=== PATIENT | male | born 1935 | race Caucasian/White ===

== ENCOUNTER 2017-01-13 16:05 | Inpatient (IN) | payer OTHER, MEDICARE ==
[~2017-01-13] VITALS: Ht 175.3 cm; Wt 86.6 kg
--- NOTE | ~2017-01-13 | P ---
[facility] [place] [place] [address] PROCEDURE REPORT Name: DEYANIRA IRBY Room #: 236-P [facility] IN M.R.#: [id number] Admission: 01/13/17 Attend Phys: Leonila Nevarez MD Discharge: 02/02/17 Date of : 35 Report #: [id number] THIS REPORT FOR: //name// CC: Kwadwo Cao PROCEDURE: Diagnostic bronchoscopy. CLINICAL HISTORY: An 81-year-old white male with severe pneumonia with respiratory failure and with worsening leukocytosis. A diagnostic bronchoscopy was performed. POSTOPERATIVE DIAGNOSES: Old blood seen in both lower lobes. Otherwise, airways appear patent. Mild purulent secretions seen from both lower lobes. DESCRIPTION OF PROCEDURE: Following obtained consent from the patient's , the procedure was performed in the ICU. A flexible bronchoscope was introduced through the previously placed ET tube. The distal trachea was unremarkable. Marisol was normal. Right main stem bronchus, right upper lobe, and right lower lobe were grossly unremarkable, other than old blood seen in the airways. This was mild. Left main stem bronchus, left upper lobe, and left lower lobe was also unremarkable, other than old blood. Secretions were mildly purulent. No mucus plugging was noted. Bronchial lavage will be performed in the both lower lobes. The specimen will be sent for microbiologic studies. The patient tolerated the procedure well. No complications. Vital signs and saturation were within normal range throughout the procedure. <ELECTRONICALLY SIGNED> By: Olivier Mitchell MD 02/02/17 1124 1532 1756 Olivier Mitchell MD /nt
--- NOTE | ~2017-01-13 | CNG ---
[facility] [place] [place] [address] CYTO-NONGYN REPORT PROCEDURE Name: INDERJIT IRBY Room #: 236-P ADM IN M.R.#: [id number] Admission: 01/13/17 Date of : 35 Discharge: Report #: [id number] Path Case #: [id number] CYTOPATHOLOGY REPORT COLLECTION DATE: 01/22/2017 RECEIVED DATE: 01/22/2017 SUBMITTING PHYS: Dr. Olivire Mitchell OTHER PHYS: Dr. Pinky Bryant CLINICAL HISTORY: AFIB, RVR, Pneumonia SPECIMEN(S) RECEIVED: A.Bronchoalveolar lavage, Lower lobes * * * * * * * * * * * * FINAL DIAGNOSIS: A. Lower lobes, Bronchoalveolar lavage: - No malignant cells identified. Rare bronchial epithelial cells, scattered alveolar macrophages and marked acute inflammation. PATHOLOGIST: Aminta Jessica M.D. REPORT ELECTRONICALLY SIGNED BY: Aminta Jessica M.D. DATE/TIME: 01/25/2017 16:16 * * * * * * * * * * * * GROSS PATHOLOGY: A. Bronchoalveolar lavage, Lower lobes: The specimen is submitted unfixed, labeled "ColeenInderjit". Received by the Cytology Department is 1 mL of thick cloudy pink fluid. One ThinPrep slide was prepared. 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 [facility] [address] [place] [address], [facility] [address] [place], [place] [address] [place] [address] [place] [address] CYTO-NONGYN REPORT PROCEDURE Name: INDERJIT IRBY Room #: 236-P ADM IN M.R.#: [id number] Admission: 01/13/17 Date of : 35 Discharge: Report #: [id number] Path Case #: [id number] PHONE: [phone] DIRECTOR: Jd Gardner M.D. * * * END OF REPORT * * *
--- NOTE | ~2017-01-13 | D ---
[facility] [place] [place] [address] DISCHARGE SUMMARY Name: DEYANIRA IRBY Room #: 236-P [facility] IN ..#: [id number] Admission: 01/13/17 Attend Phys: Leonila Nevarez MD Discharge: 02/02/17 Date of : 35 Report #: [id number] THIS REPORT FOR: //name// CC: Kwadwo Nevarez DATE OF SERVICE: 02/02/2017 DATE OF ADMISSION: 01/13/2017 DATE OF DISCHARGE: 02/02/2017 DIAGNOSES: 1. Acute hypoxic respiratory failure secondary to pneumonia. 2. Pneumonia with severe sepsis. 3. Cerebral infarcts. 4. Acute kidney injury. CONSULTS: Critical Care, Pulmonary, ID, renal Urology, Cardiology and GI. HOSPITAL COURSE: The patient is an 81-year-old male with a history of hypertension and dyslipidemia, presented to the ER secondary to cough and not feeling well. Please see details of admission dictated by Dr. Roger Germain on January 13. The patient was admitted for pneumonia and initially was also in rapid atrial fibrillation. For details of the hospital course, please see [facility]. The patient developed respiratory failure, subsequently intubated. Pulmonary and Critical Care was consulted. Additionally, he developed severe sepsis and ID was consulted. Cardiology was consulted to manage his current cardiac issues. Over the course of a couple of weeks, his condition continued to deteriorate. He also developed encephalopathy, Neurology was consulted. MRI was done and the patient was found to have cerebral infarcts as well. Palliative care was consulted and after long discussion with the family, they decided to withdraw care. The patient on 02/02/2017. By: 0737 1150 My Hans Nevarez MD /nt
--- NOTE | ~2017-01-13 | HC ---
[facility] [place] [place] [address] CONSULTATION Name: DEYANIRA IRBY Room #: 236-P [facility] IN .R.#: [id number] Admission: 01/13/17 Attend Phys: Pinky Cao MD Discharge: Date of : 35 Report #: [id number] THIS REPORT FOR: //name// CC: Kwadwo Germain PRIMARY PHYSICIAN: Kwadwo Bryant DO REFERRAL PHYSICIAN: Dr. Germain. REASON FOR REFERRAL: Acute hypoxic respiratory failure. HISTORY OF PRESENT ILLNESS: The patient is an 81-year-old white male who was admitted on 01/13/2017, for progressive dyspnea. He was found to be in atrial fibrillation with rapid ventricular response. He was also found to have bilateral pneumonia. The patient was admitted. Since admission, the patient has developed progressive hypoxia and dyspnea. He is in moderate respiratory distress at this time. He is currently on 15 liters of O2, saturation is 85% predicted. He is in the process of being transferred to the ICU. His CT chest performed during this admission was reviewed showing bilateral patchy infiltrates. PAST MEDICAL HISTORY: Hypertension, hyperlipidemia, and chronic back pain. PAST SURGICAL HISTORY: Includes laminectomy in 1974, right rotator cuff surgery in 1994, left rotator cuff surgery in 2001, tonsillectomy, right hip surgery along with back surgery. ALLERGIES: To HYDROCODONE, which causes dyspnea; NABUMETONE, reaction is not specified; and PENICILLIN, reaction is not specified. HOME MEDICATIONS: Atorvastatin, alprazolam, lisinopril, multivitamins, and aspirin. CURRENT MEDICATIONS: Reviewed, this include bronchodilators, meropenem, and levofloxacin. FAMILY HISTORY: Noncontributory. SOCIAL HISTORY: The patient is . He is a lifetime nonsmoker. Denies any alcohol use. ____. He lives with his spouse. REVIEW OF SYSTEMS: As mentioned above, otherwise the patient states that has been fairly healthy up to recently. [facility] [address] [place] [address] CONSULTATION Name: DEYANIRA IRBY Room #: [address] [place] [address] [place] [facility].#: [id number] Admission: 01/13/17 Attend Phys: Pinky Cao MD Discharge: Date of : 35 Report #: [id number] Otherwise, 10-point system review negative. PHYSICAL EXAMINATION: GENERAL: He is awake, alert, in moderate respiratory distress. VITAL SIGNS: Temperature is 98.8 degrees Fahrenheit, pulse is ____, respiratory rate is 20, blood pressure 142/90 mmHg, saturation is 86-90% on 15 liters of O2. HEENT: Normocephalic, atraumatic. NECK: Supple, without lymphadenopathy or thyromegaly. CHEST: Breath sounds are fair, bilateral crackles. No obvious wheezes. CARDIOVASCULAR: Irregularly irregular. No obvious murmurs or gallops. Pulses are 2+/4+ bilaterally. ABDOMEN: Soft, nontender, no organomegaly or masses felt. EXTREMITIES: There is no edema, cyanosis, or clubbing. LABORATORY DATA: CT chest as mentioned above. Chest x-ray performed earlier today shows increased bilateral infiltrates and possible pleural effusion on the left, volume loss. 2D echocardiogram performed, showed an ejection fraction of 55%, mild aortic stenosis, moderate mitral regurgitation, moderate pulmonary hypertension with a PA pressure of around 50 mmHg, no pleural effusion seen. Influenza A and B screen was negative. Troponin was normal. Lactate was 1.7. Sodium 125, potassium 3.5, chloride 89, CO2 of 28, BUN 16, creatinine 0.9. WBC 23,200, hemoglobin is 11.9 without significant bandemia. Albumin 1.8. Arterial blood gas revealed pH 7.50, pCO2 32, pO2 of 55 on 15 liters of O2. IMPRESSION: 1. Acute hypoxic respiratory failure in this 81-year-old white male. His chest x-ray and chest CT revealed bilateral interstitial infiltrates with a most recent chest x-ray suggesting volume overload. Pleural effusion on the left is suspected. He was also in atrial fibrillation with rapid ventricular response. Etiology is secondary to severe bilateral pneumonia with possible component of pulmonary edema. Pulmonary embolus is felt to be less likely. 2. Bilateral infiltrates. The patient is felt to have severe community-acquired pneumonia. He is currently on meropenem and Levaquin. I would suggest switching to vancomycin along with Levaquin given the severity of pneumonia. 3. Atrial fibrillation with rapid ventricular response, the patient may have a component of volume overload with pulmonary edema on top of his pneumonia. Diuretics have been started. 4. Electrolyte abnormalities including hyponatremia, hypokalemia, related to severe pulmonary impairment. 5. Severe protein-calorie malnutrition. 6. Acute diastolic heart failure as mentioned above. RECOMMENDATION: We would transfer the patient to ICU, noninvasive positive [facility] [address] [place] [address] CONSULTATION Name: DEYANIRA IRBY Room #: 236-P [facility] IN M.R.#: [id number] Admission: 01/13/17 Attend Phys: Pinky Cao MD Discharge: Date of : 35 Report #: [id number] pressure ventilation will be initiated, diuretics ____, change antibiotics to vancomycin along with Levaquin. I do not suspect the patient has aspiration, but more so Gram-negative including other community-acquired pneumonia pathogens. Based on both data, the patient does meet the criteria of severe sepsis. Sepsis protocol will be initiated except for volume bolus based on presumed heart failure. With increased work of breathing, the patient is at risk for developing respiratory failure necessitating intubation. We will monitor closely. DVT and GI prophylaxis will be addressed. Thank you for the consultation. Additional recommendations include given severe respiratory distress, the patient should be n.p.o. with only sips of water for now. Thank you ____. <ELECTRONICALLY SIGNED> By: Olivier Mitchell MD 01/19/17 1146 1321 2158 Olivier Mitchell MD /nt
--- NOTE | ~2017-01-13 | HC ---
[facility] [place] [address] CONSULTATION Name: DEYANIRA IRBY Room #: 236-P ADM IN M.R.#: [id number] Admission: 01/13/17 Attend Phys: Pinky Cao MD Discharge: Date of : 35 Report #: [id number] THIS REPORT FOR: //name// CC: Kwadwo Cao DATE OF SERVICE: 01/25/2017 Nephrology Consultation REASON FOR CONSULTATION: Acute kidney injury and hyperkalemia. HISTORY OF PRESENT ILLNESS: The patient was admitted in late December with community-acquired pneumonia and has had a progressively deteriorating course since that time despite antibiotic treatment and requiring intubation and further management complicated by atrial fibrillation with rapid ventricular response, bleeding including epistaxis and now rising creatinine and hyperkalemia. PAST MEDICAL HISTORY: He has a history of prior hypertension. OUTPATIENT MEDICATIONS: Included lisinopril, atorvastatin and aspirin. PAST SURGICAL HISTORY: He also has a previous past surgical history including laminectomy, rotator cuff surgery and several other orthopedic surgeries. SOCIAL HISTORY: Apparently, no smoking or alcohol according to the electronic medical record. REVIEW OF SYSTEMS: Cannot be taken as the patient is sedated on the ventilator. FAMILY HISTORY: Please see old charts. PHYSICAL EXAMINATION: GENERAL: This is an ill-appearing gentleman, endotracheal tube in place, completely sedated on the ventilator. SKIN: Unremarkable. SKELETAL: Well developed, well nourished, nonobese. HEENT: Extraocular movements cannot be tested. Pupils are reactive. Mucous membranes cannot be examined due to endotracheal tube. NECK: Shows no JVD. CHEST: Shows coarse rhonchi throughout. HEART: Irregular with a pulse of 100. ABDOMEN: Soft and nontender with good bowel sounds. EXTREMITIES: Show trace peripheral edema. Feet are slightly cool, not [facility] [address] [place] [address] CONSULTATION Name: DEYANIRA IRBY Room #: 236-P [facility] IN [place].#: [id number] Admission: 01/13/17 Attend Phys: Pinky Cao MD Discharge: Date of : 35 Report #: [id number] cyanotic. LABORATORY DATA: Hemoglobin is 9.3, white count 23.2, 78% neutrophils and no bands. Sodium is 137, potassium 6.2, chloride ____. ASSESSMENT AND PLAN: 1. Acute kidney injury: The patient is acutely ill with pneumonia, attempts at diuresis have been made. Hemodynamically, he has been at times unstable. Now, he is showing worsening kidney function. Primary diagnosis is community-acquired pneumonia. Further evaluation including culture results have been unrevealing. He had an ____ acute kidney injury with hyperkalemia, worsening renal function in the setting of deteriorating multi-system failure, community-acquired pneumonia. We will make attempts to improve his renal perfusion with increasing IV fluids, watching carefully for further fluid overload in the chest or worsening oxygenation requirements. Hopefully, this will also help with his hyperkalemia, which is also being treated with insulin, glucose and Kayexalate. We will adjust his tube feeding to ____ potassium from that and that certainly will be helpful as well and we will follow him closely in the ICU. 2. Community-acquired pneumonia with deterioration in respiratory failure. 3. History of hypertension. 4. Atrial fibrillation with rapid ventricular response. <ELECTRONICALLY SIGNED> By: Guilherme Graham MD 01/26/17 1147 0916 1225 Guilherme Graham MD /nt
--- NOTE | ~2017-01-13 | EEG ---
[facility] [place] [address] ELECTROENCEPHALOGRAM Name: DEYANIRA IRBY Room #: 236-P [facility] IN M.R.#: [id number] Admission: 01/13/17 Attend Phys: Matias Valdes Discharge: Date of : 35 Report #: [id number] THIS REPORT FOR: //name// CC: Kwadwo Cao DATE OF SERVICE: 01/29/2017 The patient is an 81-year-old male who is intubated. The patient has been off sedation and there is concern about his mental status. DESCRIPTION: The awake record consists of low amplitude poorly developed posterior dominant rhythm consisting of 5 cycle per second activity. There is no significant change of state during the recording, although muscle artifact was noted in the mid portion of the recording. No eye blink artifact was seen. Photic stimulation was nonactivating. No focal abnormalities or epileptiform discharges were noted. IMPRESSION: This is an abnormal adult record because of, 1. Lack of change of state during the recording. 2. Moderate slowing of the posterior dominant rhythm, which indicates diffuse cerebral dysfunction, but is a nonspecific finding. I thank you for your kind referral of the patient. <ELECTRONICALLY SIGNED> By: Mahi Escamilla DO 01/30/17 1111 2134 2203 Mahi Escamilla, DO /nt
--- NOTE | ~2017-01-13 | EKG ---
[address] [place] [address] ELECTROCARDIOGRAM REPORT Name: DEYANIRA IRBY Room #: 236-P ADM IN M.R.#: [id number] Admission: 01/13/17 Attend Phys: Pinky Cao MD Discharge: Date of : 35 Report #: [id number] THIS REPORT FOR: //name// 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 : 1935 Requested By: Jose L Xiong Order Number: [id number] MD: Andrew Pritchard Measurements Intervals [place] Rate: 79 P: 23 LA: 272 QRS: -19 QRSD: 93 T: 13 QT: 391 QTc: 449 Interpretive Statements Sinus rhythm Prolonged LA interval Poor R wave progression Compared to ECG 01/16/2017 07:46:18 sinus rhythm has replaced atrial fibrillation Electronically Signed On 01-19-2017 8:46:23 CDT by Andrew Pritchard [email or web address] <ELECTRONICALLY SIGNED> By: Andrew Pritchard MD, [facility] 01/19/17 0846 1037 1037 Andrew Pritchard MD, [facility] /EPI
--- NOTE | ~2017-01-13 | HC ---
[facility] [place] [address] CONSULTATION Name: DEYANIRA IRBY Room #: 236-P [facility] IN .R.#: [id number] Admission: 01/13/17 Attend Phys: Pinky Cao MD Discharge: Date of : 35 Report #: [id number] THIS REPORT FOR: //name// CC: Kwadwo Germain DATE OF SERVICE: 01/17/2017 INFECTIOUS DISEASE CONSULTATION ATTENDING PHYSICIAN: Roger Germain M.D. CONSULTATION REQUESTED BY: Olivier Mitchell M.D. REASON FOR CONSULTATION: Pneumonia and antibiotic management. HISTORY OF PRESENT ILLNESS: An 81-year-old white man hospitalized with increasing dyspnea. Chest x-ray and CT scan of the chest revealed bilateral pulmonary infiltrates, worse on the left. The patient is started on a combination of meropenem, vancomycin and Levaquin. At present, remains in the intensive care unit. He had experienced a nose bleed. He denies having any significant problems. He tells me the reason he is here is because of pneumonia. PAST MEDICAL HISTORY: Hypertension. Dyslipidemia. Chronic back pain. Laminectomy in 1974. Right rotator cuff surgery in 1994. Tonsillectomy. Right hip and back surgery in the past. DRUG ALLERGIES: HYDROCODONE, NABUMETONE and PENICILLIN. MEDICATIONS: The patient is on treatment with vancomycin 1250 mg IV every 12 hours, meropenem 1 gram IV every 8 hours and Levaquin 750 mg IV daily. He is receiving magnesium and potassium supplementation per protocol. He remains on regular insulin drip, p.r.n. Glucagon. Pressors as needed, heparin drip inhalation treatment with Atrovent and albuterol, diuresis with Lasix, dabigatran 150 p.o. b.i.d. p.r.n., alprazolam, history of intravenous diltiazem and p.r.n. ondansetron. SOCIAL HISTORY: See H and P. FAMILY HISTORY: See H and P. REVIEW OF SYSTEMS: As above and see H and P. PHYSICAL EXAMINATION: GENERAL: Elderly man, not toxic looking, in the intensive care unit. [facility] [address] [place] [address] CONSULTATION Name: DEYANIRA IRBY Room #: 236-P [facility] IN [facility].#: [id number] Admission: 01/13/17 Attend Phys: Pinky Cao MD Discharge: Date of : 35 Report #: [id number] VITAL SIGNS: Temperature maximum 99.9, pulse 113, respirations 29 and BP 124/86. HEENT: Head normocephalic, atraumatic. He has packing up at the left nostril because of nosebleed. Mouth, no thrush. NECK: Supple. No thyromegaly. LUNGS: Bilateral crackles posteriorly, left worse than right. HEART: S1, S2. No gallop or murmur. ABDOMEN: Soft. No masses or megaly. GENITOURINARY: Deferred. RECTAL EXAMINATION: Deferred. EXTREMITIES: No clubbing or cyanosis. NEUROLOGIC: Grossly within normal limits. LABORATORY DATA: Sodium 127, potassium 3.6, CO2 of 26, BUN 18, creatinine 0.9 and glucose 95. Alkaline phosphatase 152 IU per L. Albumin down to 2 g/dL. NT-proBNP was elevated at 5241 on January 13. WBC 25,300, hemoglobin 11.3 g/dL and platelets 512,000. Urinalysis revealed some microscopic hematuria. ABGs yesterday revealed pH of 7.50, pCO2 of 32, pO2 of 55, bicarbonate 25 and lactate 1.97 micromoles per liter. These set of gases on 15 liters nasal cannula. MICROBIOLOGY DATA: Blood and sputum cultures were order. Blood cultures were obtained. They remain negative and nasopharyngeal smear negative for rapid influenza antigens, A and B. Urine culture, no growth. RADIOLOGY EVALUATION: CT scan of the chest with and without contrast reveals extensive diffuse bilateral alveolar infiltrate, left greater than right; moderate pleural effusions; coronary artery calcification and mildly enlarged mediastinal adenopathy. ASSESSMENT: 1. Pneumonia with respiratory failure, undetermined organism. 2. Atrial fibrillation, rate controlled. 3. Aortic stenosis. 4. Hypertension. 5. Hypoalbuminemia. 6. Epistaxis. SUGGESTIONS: Recommend while awaiting culture results, we will continue with broad-spectrum antibiotic coverage, consistent of meropenem, vancomycin and Levaquin. Once clinical course improved and microbiology data available, we will streamline antibiotic regimen. [address] [address] CONSULTATION Name: SKYE IRBYSAMUEL Patiño Room #: 236-P [facility] IN M.R.#: [id number] Admission: 01/13/17 Attend Phys: Pinky Cao MD Discharge: Date of : 35 Report #: [id number] Germain and Dr. Mitchell, thank you for requesting my suggestions. <ELECTRONICALLY SIGNED> By: Kuldeep Xiong MD 01/18/17 1133 0614 1117 Kuldeep Xiong MD /nt
--- NOTE | ~2017-01-13 | EKG ---
[address] [address] ELECTROCARDIOGRAM REPORT Name: DEYANIRA IRBY Room #: 236-P ADM IN M.R.#: [id number] Admission: 01/13/17 Attend Phys: Pinky Cao MD Discharge: Date of : 35 Report #: [id number] THIS REPORT FOR: //name// [facility] Test Date: 2017-01-24 Test Time: 01:47:56 Pat Name: DEYANIRA IRBY Department: Room: 236 P Gender: M Record Cutter: brianna : 1935 Requested By: Jose L Xiong Order Number: [id number] MD: Jose L Xiong Measurements Intervals [place] Rate: 109 P: [place]: QRS: 102 QRSD: 95 T: -8 QT: 312 QTc: 421 Interpretive Statements Atrial fibrillation Right axis deviation Borderline T wave abnormalities Electronically Signed On 01-24-2017 22:34:04 CDT by Jose L Xiong [email or web address] <ELECTRONICALLY SIGNED> By: Jose L Xiong MD 01/24/17 2234 0147 0147 MD REX Mata
--- NOTE | ~2017-01-13 | EKG ---
[address] [address] ELECTROCARDIOGRAM REPORT Name: DEYANIRA IRBY Room #: 236-P ADM IN M.R.#: [id number] Admission: 01/13/17 Attend Phys: Roger Germain MD Discharge: Date of : 35 Report #: [id number] THIS REPORT FOR: //name// [facility] Test Date: 2017-01-16 Test Time: 07:46:18 Pat Name: DEYANIRA IRBY Department: Room: 236 Gender: M Sidehand: olman : 1935 Requested By: Jose L Xiong Order Number: [id number] MD: Andrew Pritchard Measurements Intervals [place] Rate: 114 P: IN: QRS: 6 QRSD: 94 T: 23 QT: 334 QTc: 461 Interpretive Statements Atrial fibrillation Poor R-wave progression Compared to ECG 01/13/2017 16:20:16 No significant change was found Electronically Signed On 01-17-2017 12:47:02 CDT by Andrew Pritchard [email or web address] <ELECTRONICALLY SIGNED> By: Andrew Pritchard MD, [facility] 01/17/17 1247 5 5 Andrew Pritchard MD, [facility] /EPI
--- NOTE | ~2017-01-13 | HC ---
[facility] [place] [address] CONSULTATION Name: DEYANIRA HORNE Room #: 236-P [facility] IN .R.#: [id number] Admission: 01/13/17 Attend Phys: Pinky Cao MD Discharge: Date of : 35 Report #: [id number] THIS REPORT FOR: //name// CC: Guilherme Cao Patient of Dr. Kwadwo Bryant and Dr. Pinky Cao. CHIEF COMPLAINT: This is an 81-year-old white male who was admitted to the hospital with community-acquired pneumonia that eventually required intubation and mechanical ventilation. He remains on the ventilator in the ICU and is critically ill. Most of the information in this documentation is obtained from the patient's chart, the computer and from patient's who is at the bedside. The patient initially presented with these symptoms of community-acquired pneumonia and has been critically ill in the Intensive Care Unit for quite some time. He was discovered also to have acute diastolic heart failure at the time of admission. He had a history only of hyperlipidemia. In the hospital, he has had some episodes of hypertension when his pain has been poorly controlled. He had 1 episode of epistaxis on 01/16/2017 and now, he is developing worsening acute renal failure with hyperkalemia and rising creatinine and a BUN that is extraordinarily high over 150. We were asked to see him because of heme positive stools and the possibility that he may have an upper GI bleed with that high BUN. PAST MEDICAL HISTORY: As listed above plus hyperlipidemia, atrial fibrillation, acute respiratory failure due to community-acquired pneumonia, diastolic heart failure, episode of epistaxis, hyperlipidemia and gastroesophageal reflux. PAST SURGICAL HISTORY: Significant mostly for orthopedic surgeries. He has had sacroiliac screws placed in October of this year. He has had bilateral rotator cuff repairs done. He has had a left hip replacement and he had a laminectomy in 1972. ALLERGIES: PENICILLIN. MEDICATIONS: Prior to admission included 81 mg aspirin, alprazolam 0.25 mg, he just takes that when he is riding in an airplane. He takes Lipitor, lisinopril, multiple vitamins. ALLERGIES: To PENICILLIN, HYDROCODONE, RELAFEN. SOCIAL HISTORY: He has never been a smoker. He drinks a glass of wine about 3 times a week. He has never had a blood transfusion. [address] [address] CONSULTATION Name: DEYANIRA HORNE Room #: 236-P [facility] IN [facility]#: [id number] Admission: 01/13/17 Attend Phys: Pinky Cao MD Discharge: Date of : 35 Report #: [id number] FAMILY HISTORY: Significant for colon polyp in his mother when she was in her 90s. There is no history of colon cancer, Crohn's disease or ulcerative colitis or celiac sprue. His brother is alive and well at the age of 92. REVIEW OF SYSTEMS: He has had no history of dysphagia or odynophagia. He does have occasional gastroesophageal reflux and is taking Pepcid with good control of those symptoms. His says that he has never had any history of hiatal hernia or peptic ulcer disease and his weight has been stable at 190 pounds for years. His appetite is good. He has not had nausea or vomiting, hematemesis, hematochezia or melena. There has been no constipation. He has predictable diarrhea if eats iceberg lettuce but that does not stop him. He has no history of colon polyps and he has had routine colonoscopies every 5 years. There is no history of jaundice, hepatitis, cholelithiasis, cholecystitis or pancreatitis. In the hospital, he has had brownish dark colored stools, but they are not black. There is no hematochezia or hematemesis. He is tolerating tube feedings per Dobhoff. PHYSICAL EXAMINATION: GENERAL: Reveals a well-developed, well-nourished 81-year-old white male in no apparent distress at the time of the examination. He is awake, alert, oriented x 4 and cooperative and pleasant to converse with. VITAL SIGNS: Blood pressure 157/83, temperature 36.5, pulse 99, respirations are in the 20s. His weight was 199 pounds yesterday, but on admission, it was 191 pounds. Stools have been all brown or dark brown. They are heme positive. HEENT: He is normocephalic, atraumatic and anicteric. HEART: Irregularly irregular. LUNGS: Clear on the left. For the most part on the right side, he has a lot of congestion. ABDOMEN: Soft and nontender? Bowel sounds are present in all 4 quadrants. There is no palpable organomegaly or mass. There is no tenderness, rebound or guarding that I can appreciate. The patient is sedated, however, with propofol. EXTREMITIES: Warm and dry. No peripheral cyanosis or clubbing. The patient does have a bruise on his left hip that appears to be healing. Right now, he has disseminated, erythematous maculopapular rash, undetermined etiology. This is a new rash. He did not have this prior to coming to the hospital. NEUROLOGIC: I did not test him extensively. He appears grossly intact, but he is sedated. IMPRESSION: 1. Heme-positive stools without hematemesis, hematochezia or melena; drop in hemoglobin throughout this admission from a level of 12.5 to a level of 8.7 today. He has a rising BUN and creatinine. Stools are dark brown. His last colonoscopy was 5 years ago and was normal. He has never had any history of colon polyps or colon cancer or diverticulosis per his 's or any previous gastrointestinal bleeding history. He was placed on dabigatran during this [facility] [address] [place] [address] CONSULTATION Name: MAHAMEDDEYANIRA T [facility] ..#: [id number] Admission: 01/13/17 Attend Phys: Pinky Cao MD Discharge: Date of : 35 Report #: [id number] admission. It was discontinued today per chart; however, his nurse tells me that he has not had this for many days. 2. Gastroesophageal reflux. Outside of the hospital, he took Pepcid p.r.n. with good control. 3. The patient's mother had her first colon polyp whenever she was in her 90s. 4. Hyperlipidemia. 5. Worsening renal insufficiency. 6. Hyperkalemia related to worsening renal insufficiency. 7. The patient has a lot of orthopedic problems from wear and tear on his joints over the years. 8. Atrial fibrillation, which is new. 9. Acute respiratory failure due to community-acquired pneumonia and sepsis. 10. Acute diastolic heart failure. 11. Episode of epistaxis this admission after starting anticoagulation. RECOMMENDATIONS: As follows: I have discussed with Ms. Horne if there are any number of reasons that his stools could be heme positive and the fact that there has been no hematemesis, hematochezia or melena is encouraging. He could still be heme positive from his epistaxis episode in December of this year. I agree with proton pump inhibitors b.i.d. He is tolerating the tube feedings. We also would continue those. His vital signs are stable. If he has any gross evidence of acute GI blood loss, we would attempt EGD urgently. Otherwise, we will make him n.p.o. after midnight for EGD in the morning. I do not think that we will be able to proceed with anticoagulation prophylaxis without ensuring that there is no repairable cause of upper GI blood loss with regard to his rising BUN, so we will hold his tube feedings after midnight. We will get an H and H in the morning. We will obtain a consent for EGD from and I have discussed plans for EGD with the patient's . We will continue his proton pump inhibitors. Thank you very much once again for allowing me to participate in his care, Dr. Cao and Dr. Roman. <ELECTRONICALLY SIGNED> By: Alisa Doherty DO 01/27/17 1558 1053 1225 Alisa Doherty DO /nt
--- NOTE | ~2017-01-13 | EKG ---
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 : 1935 Requested By: Dedrick Lua Order Number: [id number] MD: Andrew Pritchard Measurements Intervals [place] Rate: 99 P: CT: QRS: 86 QRSD: 99 T: 2 QT: 309 QTc: 397 Interpretive Statements Atrial flutter with predominant 3:1 AV block Compared to ECG 01/24/2017 01:47:56 No significant change was found Electronically Signed On 01-25-2017 9:14:38 CDT by Andrew Pritchard [email or web address] <ELECTRONICALLY SIGNED> By: Andrew rPitchard MD, [facility] 01/25/17913 8 8 Andrew Pritchard MD, [facility] /EPI
--- NOTE | ~2017-01-13 | 2DMMODE ---
[facility] [address] [place] [address] 2 D/M-MODE ECHOCARDIOGRAM Name: DEYANIRA IRBY Room #: 463-P [facility] IN [facility]#: [id number] Admission: 01/13/17 Attend Phys: Roger Germain MD Discharge: Date of : 35 Date of Service: 01/15/17 1021 Report #: [id number] THIS REPORT FOR: //name// APPROVED REPORT Study performed: 01/15/2017 09:02:59 EXAM: Comprehensive 2D, Doppler, and color-flow Echocardiogram Patient Location: Bedside Room #: 463 Blood Pressure: 151/86 mmHg HR: 120 bpm Rhythm: Atrial Fibrillation Other Information Study Quality: Adequate/Patient very short of air and uncomfortable during exam. Indications Dyspnea Atrial Fibrillation 2D Dimensions RVDd: 37.28 mm LVEF(%): 66.19 (>50%) IVSd: 10.10 (7-11mm) LVOT Diam: 22.26 (18-24mm) LVDd: 47.25 mm PWd: 9.34 (7-11mm) Ascending Ao: 32.00 (22-36mm) LVDs: 30.01 (25-40mm) Aortic Root: 34.78 mm Richardson's LVEF: 66.19 % Volumes Left Atrial Volume (Systole) Single Plane 4CH: 105.23 mL Single Plane 2CH: 66.48 mL LA ESV Index: 46.00 mL/m2 Aortic Valve AoV Peak Mariano.: 2.78 m/s AO Peak Gr.: 31.39 mmHg LVOT Max P.02 mmHg AO Mean Gr.: 19.64 mmHg LVOT Max V: 1.32 m/s AO V2 VTI: 39.98 cm [facility] [address] [place] [address] 2 D/M-MODE ECHOCARDIOGRAM Name: DEYANIRA IRBY Kaylyn Room #: 463-[facility] IN [facility].#: [id number] Admission: 01/13/17 Attend Phys: Roger Germain MD Discharge: Date of : 35 Date of Service: 01/15/17 1021 Report #: [id number] Mitral Valve MV Decel. Time: 114.87 ms MV E Max Mariano.: 1.07 m/s Pulmonary Valve PV Peak Mariano.: 1.09 m/s PV Peak Gr.: 4.76 mmHg Tricuspid Valve TR Peak Mariano.: 3.42 m/s RAP Estimate: 5.00 mmHg TR Peak Gr.: 46.95 mmHg RVSP: 52.00 mmHg Left Ventricle The left ventricle is normal size. There is normal LV segmental wall motion. There is normal left ventricular wall thickness. Left ventricular systolic function is normal. LVEF is 55%. This study is not technically sufficient to allow evaluation of the LV diastolic function due to atrial fibrillation. Right Ventricle The right ventricle is normal size. The right ventricular systolic function is normal. Atria Left atrium is dilated. Right atrium is dilated. Aortic Valve Aortic valve is moderately calcified. No aortic regurgitation is present. Mild aortic stenosis. Mitral Valve Mitral valve leaflets are mildly thickened. Moderate mitral regurgitation. Tricuspid Valve The tricuspid valve is normal in structure. There is moderate tricuspid regurgitation. The right atrial pressure is estimated at 5 mmHg. There is moderate pulmonary hypertension with an estimated PAP of 52mmHg. Pulmonic Valve The pulmonary valve is normal in structure. There is no pulmonic valvular regurgitation. Great Vessels The aortic root is normal in size. The ascending aorta is normal in [facility] [address] [place] [address] 2 D/M-MODE ECHOCARDIOGRAM Name: DEYANIRA IRBY Room #: 463-P [facility]#: [id number] Admission: 01/13/17 Attend Phys: Roger Germain MD Discharge: Date of : 35 Date of Service: 01/15/17 1021 Report #: [id number] size. IVC is normal in size and collapses >50% with inspiration. Pericardium There is no pericardial effusion. <Conclusion> Left ventricular systolic function is normal. LVEF is 55%. Normal LV segmental wall motion. Both atria are dilated. Aortic valve is moderately calcified. Mild aortic stenosis. Mitral valve leaflets are mildly thickened. Moderate mitral regurgitation. There is moderate pulmonary hypertension with an estimated PAP of 50 mmHg. There is no pericardial effusion. <ELECTRONICALLY SIGNED> By: Andrew Pritchard MD, FACC 01/15/17 1021 1021 1021 Andrew Pritchard MD, FAC /INF
--- NOTE | ~2017-01-13 | HC ---
[facility] [place] [address] CONSULTATION Name: DEYANIRA IRBY Room #: 236-P [facility] IN ..#: [id number] Admission: 01/13/17 Attend Phys: Leonila Nevarez MD Discharge: 02/02/17 Date of : 35 Report #: [id number] THIS REPORT FOR: //name// CC: Kwadwo Cao NEUROLOGY CONSULT HISTORY OF PRESENT ILLNESS: The patient is an 81-year-old male who presents with encephalopathy. The patient was initially admitted to the hospital on January 13 with shortness of air and fever. He had been ill several days prior. The patient was diagnosed with respiratory failure, bilateral interstitial infiltrates consistent with volume overload and atrial fibrillation with rapid ventricular response. The patient also had severe bilateral pneumonia. The patient has been intubated and sedation has been discontinued and this patient was not felt to be as responsive as he should be, however, the nurse states that he has been more responsive and prior to my coming to do the consult, she had just given him a dose of fentanyl because he appeared uncomfortable. Earlier in the evening, the patient had had an electroencephalogram. PAST MEDICAL HISTORY: Hypertension, hyperlipidemia, chronic back pain. PAST SURGICAL HISTORY: Laminectomy, right rotator cuff surgery, left rotator cuff surgery, tonsillectomy, right hip surgery. MEDICATIONS: Amiodarone 400 mg daily, Lipitor 20 mg daily, furosemide 80 mg b.i.d., meropenem 500 mg q 8 hours, methylprednisolone 40 mg b.i.d., metoprolol 25 mg b.i.d., Protonix 40 mg b.i.d. ALLERGIES: PENICILLIN, HYDROCODONE, NABUMETONE. PHYSICAL EXAMINATION: VITAL SIGNS: Temperature 36.6 axillary, pulse rate 90, respiratory rate 22, blood pressure 128/68, bedside pulse oximetry 96% on the ventilator. LABORATORY DATA: White blood cell count 19.1, hemoglobin 9.4, hematocrit 28.1, MCV 92.5, platelet count 366,000. Blood gas, pH 7.442, pCO2 44.6, pO2 87.1, O2 saturation 95%. Chemistry: Sodium 141, potassium 4.5, chloride 104, carbon dioxide 30, BUN 82, creatinine 1.5, GFR 45, glucose 131. Calcium 7.8, phosphorus 5.5, magnesium 2.5, total bilirubin 0.2, direct bilirubin 0.1, AST 70, ALT 74, alkaline phosphatase 98, creatinine kinase 513, total protein 5.5, albumin 1.5, amylase 21, lipase 68. TSH 1.4. NEUROLOGIC: Pupils are minimally reactive. Oculocephalic reflex is absent. Corneal reflex is present. The patient has a cough and gag reflex ventilator. I saw no spontaneous movements of the extremities. [address] [address] CONSULTATION Name: DEYANIRA IRBY Room #: 236-P [facility] IN ..#: [id number] Admission: 01/13/17 Attend Phys: Leonila Nevarez MD Discharge: 02/02/17 Date of : 35 Report #: [id number] IMPRESSION: This patient is encephalopathic. However, he had just received fentanyl prior to my examining him, so perhaps he will be more alert when I see him tomorrow as he has not had sedation. He does have some mild electrolyte abnormalities, which may be better by tomorrow as well and he has also dehydrated. I would try to give this patient as little sedation as possible, which I realize maybe difficulty with the patient on the ventilator. Once the patient is more stable, I would like to see some type of imaging of the head, whether this is with a CT scan, which may be the most practical or eventually an MRI of the head. I thank you for your kind referral the patient and will continue to follow him with you. <ELECTRONICALLY SIGNED> By: Mahi Escamilla DO 02/08/17 1253 2145 1916 Mahi Escamilla DO /nt
--- NOTE | ~2017-01-13 | P ---
[facility] [place] [address] PROCEDURE REPORT Name: DEYANIRA IRBY Room #: 236-P [facility] IN M.R.#: [id number] Admission: 01/13/17 Attend Phys: Pinky Cao MD Discharge: Date of : 35 Report #: [id number] THIS REPORT FOR: //name// CC: Kwadwo Cao DATE OF SERVICE: 01/19/2017 PROCEDURE: Intubation emergently. INDICATION: Hypoxemic respiratory failure. PROCEDURE NOTATION: I was asked to come to the bedside by ____ to emergently intubate this patient. The patient was poorly responsive, family at the bedside, discussed briefly ____ the procedure. The patient was placed in the supine posturing and switched from BiPAP to bag-mask ventilation, received 24 mg of etomidate IV. Using a MAC 4 blade, a grade 2 view of the vocal cords was noted and a 7.5 ET tube was advanced to 22 cm at the gumline. Positive ____ change and bilateral breath sounds noted. The patient tolerated well, this ET tube was secured in place. Chest x-ray is pending. Of note, there was significant blood in the oropharynx and aspirated from the endotracheal tube during initial evaluation. This blood was present on a view and not a consequence. <ELECTRONICALLY SIGNED> By: Elieser Sun MD 01/26/17 1331 1305 20 Elieser Sun MD /rosalie
--- NOTE | ~2017-01-13 | P ---
[facility] [place] [address] PROCEDURE REPORT Name: DEYANIRA IRBY Room #: 236-P [facility] IN M.R.#: [id number] Admission: 01/13/17 Attend Phys: Pinky Cao MD Discharge: Date of : 35 Report #: [id number] THIS REPORT FOR: //name// CC: Kwadwo Bryant DO Pinky Cao MD DATE OF SERVICE: 01/28/2017 PROCEDURE: Diagnostic EGD. PATIENT: Pinky Cao M.D. and Kwadwo Bryant D.O. INDICATION FOR PROCEDURE: This patient had drop in hemoglobin. He has had some Melena negative stools and this for the most part followed an episode of epistaxis on 01/16/2017, returned to rule out an upper GI source of blood loss again at this time. Informed consent for this procedure was obtained prior to the administration of any medication. The risks of the procedure which include bleeding, perforation, infection, complications of sedation and the possibility I could miss something have been explained to the patient's and she has indicated her consent for her to have the EGD. Propofol was slowly titrated before and during this procedure for patient's comfort by the anesthesia service. The [employer] upper videoscope was introduced through the upper esophageal sphincter and advanced under direct visualization to the descending duodenum. Findings are noted on withdrawal of the scope. The duodenal mucosa appears normal throughout its entirety. Pylorus, normal mucosa. Antrum, normal mucosa. Body, normal mucosa. Cardia and fundus, normal mucosa. There are some coffee-grounds in the proximal stomach. I am uncertain of their origin because there is no obvious source. There is no active bleeding. There is no red blood in the stomach or in the upper GI tract. The scope was then withdrawn into the esophagus. The Z-line is appropriately located at the top of the gastric folds and appears normal. The esophageal mucosa appears normal. There is a small strip of mucosa that has been wiped off by, what appears to be, the oral gastric tube that is in place for the patient who is currently on the vent, most likely this is the etiology of bad appearance. There is no ulceration, no bleeding in the esophagus. No potential bleeding site seen in the entire upper GI tract. The scope was withdrawn. The patient was recovered in the room. He tolerated the procedure well. IMPRESSION: Normal EGD to descending duodenum except for a few proximal gastric coffee-ground and a small stripe of esophageal mucosa that has been wiped off by the OG tube. [address] [address] PROCEDURE REPORT Name: DEYANIRA IRBY Kaylyn Room #: 236-P [facility]..#: [id number] Admission: 01/13/17 Attend Phys: Pinky Cao MD Discharge: Date of : 35 Report #: [id number] RECOMMENDATIONS: To monitor his H and H. If his further hemoglobin drops and we see blood coming out the rectum that might explain the hemoglobin drops. We may need to consider some sort of imaging study as a GI bleeding scan. I do not know that he would tolerate a colonoscopy very well at this point. Thank you very much once again for allowing me to participate in his care, Dr. Cao and Dr. Bryant. <ELECTRONICALLY SIGNED> By: Alisa Doherty DO 01/28/17 2250 1413 2148 Alisa Doherty DO /nt
--- NOTE | ~2017-01-13 | EKG ---
[address] [place] [address] ELECTROCARDIOGRAM REPORT Name: DEYANIRA IRBY Room #: 463-P ADM IN M.R.#: [id number] Admission: 01/13/17 Attend Phys: Roger Germain MD Discharge: Date of : 35 Report #: [id number] THIS REPORT FOR: //name// [facility] ED Test Date: 2017-01-13 Test Time: 16:20:16 Pat Name: DEYANIRA IRBY Department: Room: 463 Gender: M Imaging Specialist: Micaela KASPER : 1935 Requested By: Misbah Cain Order Number: [id number] MD: Andrew Pritchard Measurements Intervals [place] Rate: 139 P: [place]: QRS: -4 QRSD: 85 T: 4 QT: 285 QTc: 434 Interpretive Statements Atrial fibrillation with rapid V-rate Poor R wave progression Compared to ECG 03/03/2016 11:47:09 Atrial fibrillation is now present Electronically Signed On 01-14-2017 8:20:59 CDT by Andrew Pritchard [email or web address] <ELECTRONICALLY SIGNED> By: Andrew Pritchard MD, [facility] 01/14/17 0820 1620 19 Andrew Pritchard MD, [facility] /EPI
--- NOTE | ~2017-01-13 | HC ---
[facility] [place] [address] CONSULTATION Name: DEYANIRA IRBY Room #: 236-P [facility] IN M.R.#: [id number] Admission: 01/13/17 Attend Phys: Pinky Cao MD Discharge: Date of : 35 Report #: [id number] THIS REPORT FOR: //name// CC: Kwadwo Cao DATE OF SERVICE: 01/27/2017 PATIENT OF: Dr. Kwadwo Bryant and Dr. Cao. CHIEF COMPLAINT: The patient is sedated and on the vent and an information in this consultation is obtained from the computer and from the patient's , who is at the bedside. The patient is an 81-year-old white male, who was admitted initially to the hospital with an acute community acquired pneumonia, was eventually required intubation and mechanical ventilation. DICTATION ENDS HERE. <ELECTRONICALLY SIGNED> By: Alisa Doherty DO 01/27/17 1558 1038 1055 Alisa Doherty DO /nt
[~2017-01-13 16:05] MED LIST: ASPIRIN EC81 M1 PO; B COMPLEX-VITA1 EACH PO; CYCLOBENZAPRINE10 MG PO; GLUCOSAMINE-CH1 EA35 PO; HYDROCODON-ACE1 EACH PO; LIPITOR10 MG PO; MULTIVITAMINS PO; NABUMETONE 500500 M1 PO; PROTONIX40 M2 PO; RELAFEN500 MG PO; TRAMADOL 50 MG50 MG PO; VENTOLIN HFA 1818 GM INH; VOLTAREN GEL 1100 G1 TOP; VOLTAREN GEL 1100 G2 TOP; XANAX 0.25 MG0.25 MG PO; ZANTAC 150MG T150 MG PO; ZOFRAN ODT4 MG PO
[2017-01-13 17:06] LABS: HEMATOCRIT 35.8 % (42.0-52.0); HEMOGLOBIN 12.5 gm/dL (14.0-18.0); MANUAL DIFF YES; MCH 31.6 pg (26.0-34.0); MCHC 34.9 g/dL (28.0-37.0); MCV 90.5 fL (80.0-100.0); PLATELET COUNT 409 thou/uL (150-400); RBC 3.95 mil/uL (4.50-6.00); RDW 12.3 % (10.5-14.5); WBC 22.3 thou/uL (4.0-11.0)
[2017-01-13] MEDS ORDERED: LISINOPRIL2.5 MG PO (17:11)
[2017-01-13 17:24] LABS: ANION GAP 10 mmol/L (7-16); BUN 16 mg/dL (7-18); CALCIUM 8.2 mg/dL (8.5-10.1); CHLORIDE 88 mmol/L (98-107); CO2 23 mmol/L (21-32); CREATININE 1.1 mg/dL (0.7-1.3); GLUCOSE 120 mg/dL (74-106); SODIUM 121 mmol/L (136-145)
[2017-01-13 17:35] LABS: ALBUMIN 2.3 g/dL (3.4-5.0); ALKALINE PHOSPHATASE 115 U/L (46-116); MAGNESIUM 1.8 mg/dL (1.8-2.4); NT-PRO BRAIN NAT PEPTIDE 5241 pg/mL (<300); SGOT 46 U/L (15-37); SGPT 39 U/L (30-65); TOTAL BILIRUBIN 0.9 mg/dL (<0.1-1.0); TOTAL PROTEIN 6.5 g/dL (6.4-8.2); TROPONIN-I < 0.04 ng/mL (<0.04-0.07)
[2017-01-13 17:37] LABS: APTT 35.9 Seconds (24.5-32.8); INR 1.1; PROTIME 11.8 Seconds (9.3-11.4)
[2017-01-13 17:58] LABS: ABSOLUTE NEUTROPHILS 20.7 thou/uL (1.4-8.2); TOTAL CELL COUNT 100
[2017-01-13 17:59] LABS: LARGE PLATELETS OCCASIONAL; POLYCHROMASIA SLIGHT
[2017-01-13 19:30] VITALS: BP 126/81
[2017-01-13 20:05] VITALS: BP 117/71
[2017-01-13 21:17] VITALS: BP 114/73
[2017-01-13 23:32] VITALS: BP 131/84
[2017-01-14 04:28] VITALS: BP 130/85
[2017-01-14 06:25] LABS: HEMOGLOBIN 11.7 gm/dL (14.0-18.0); MCH 31.6 pg (26.0-34.0); MCHC 34.3 g/dL (28.0-37.0); MCV 92.2 fL (80.0-100.0); RBC 3.69 mil/uL (4.50-6.00); RDW 12.6 % (10.5-14.5); WBC 20.4 thou/uL (4.0-11.0)
[2017-01-14 06:46] LABS: ANION GAP 10 mmol/L (7-16); BUN 14 mg/dL (7-18); CALCIUM 7.7 mg/dL (8.5-10.1); CHLORIDE 95 mmol/L (98-107); CO2 21 mmol/L (21-32); CREATININE 0.8 mg/dL (0.7-1.3); GLUCOSE 97 mg/dL (74-106); POTASSIUM 3.6 mmol/L (3.5-5.1); SODIUM 126 mmol/L (136-145); TROPONIN-I < 0.04 ng/mL (<0.04-0.07)
[2017-01-14 08:00] VITALS: BP 142/84
[2017-01-14 11:47] LABS: ABG SAMPLE TYPE ARTERIAL; BE(vivo) -2.6 mmol/L (-2 to +3); HCO3 20.3 mmol/L (22.0-26.0); LACTATE 2.73 mmol/L (0.5-2.0); O2(CT) 16.4 mL/dL (15.0-23.0); O2Hb 93.3 % (92.0-98.0); PCO2 29.9 mmHg (35.0-45.0); PO2 66.6 mmHg (80.0-100.0); STICK SITE R.RADIAL; sO2 94.3 % (92.0-98.0); tCO2 21.2 mmol/L (24.0-30.0)
[2017-01-14 12:05] VITALS: BP 114/75
[2017-01-14 16:45] VITALS: BP 124/77; BP 147/94
[2017-01-14 19:50] VITALS: BP 143/95
[2017-01-15 01:06] VITALS: BP 149/89
[2017-01-15 04:19] VITALS: BP 143/87
[2017-01-15 05:58] LABS: HEMATOCRIT 34.7 % (42.0-52.0); HEMOGLOBIN 11.9 gm/dL (14.0-18.0); MCH 31.7 pg (26.0-34.0); MCHC 34.3 g/dL (28.0-37.0); MCV 92.5 fL (80.0-100.0); RBC 3.76 mil/uL (4.50-6.00); RDW 12.4 % (10.5-14.5); WBC 21.3 thou/uL (4.0-11.0)
[2017-01-15 06:00] LABS: CREATININE 0.8 mg/dL (0.7-1.3); POTASSIUM 3.3 mmol/L (3.5-5.1)
[2017-01-15 07:43] VITALS: BP 151/86
[2017-01-15 15:21] VITALS: BP 126/84
[2017-01-15 20:58] VITALS: BP 147/94
[2017-01-15 22:17] LABS: URINE BILIRUBIN NEGATIVE (Negative); URINE BLOOD 1+ (Negative); URINE COLOR YELLOW; URINE GLUCOSE-RANDOM* NEGATIVE (Negative); URINE KETONES NEGATIVE (Negative); URINE LEUKOCYTES-REFLEX NEGATIVE (Negative); URINE PROTEIN (DIPSTICK) NEGATIVE (Negative); URINE UROBILINOGEN 0.2 E.U./dl (0.2-1.0)
[2017-01-15 22:23] LABS: CASTS None Seen /LPF (None Seen); CRYSTALS None Seen /LPF (None Seen); SQUAMOUS None Seen /LPF (0-3); URINE RBC None Seen /HPF (0-2); URINE WBC-REFLEX None Seen /HPF (0-5)
[2017-01-16] VITALS (45 sets, daily range): BP systolic 111–150; BP diastolic 73–112
[2017-01-16 10:35] LABS: HEMATOCRIT 34.9 % (42.0-52.0); HEMOGLOBIN 11.9 gm/dL (14.0-18.0); MCH 31.6 pg (26.0-34.0); MCHC 34.1 g/dL (28.0-37.0); MCV 92.6 fL (80.0-100.0); PLATELET COUNT 514 thou/uL (150-400); RBC 3.77 mil/uL (4.50-6.00); RDW 12.9 % (10.5-14.5); WBC 23.3 thou/uL (4.0-11.0)
[2017-01-16 10:38] LABS: MANUAL DIFF YES
[2017-01-16 10:45] LABS: ALBUMIN 1.8 g/dL (3.4-5.0); CALCIUM 7.9 mg/dL (8.5-10.1); CREATININE 0.9 mg/dL (0.7-1.3); POTASSIUM 3.5 mmol/L (3.5-5.1); TOTAL BILIRUBIN 0.8 mg/dL (<0.1-1.0); TOTAL PROTEIN 6.2 g/dL (6.4-8.2)
[2017-01-16 10:56] LABS: ABSOLUTE NEUTROPHILS 21.7 thou/uL (1.4-8.2); TOTAL CELL COUNT 100
[2017-01-16 12:35] LABS: ABG SAMPLE TYPE ARTERIAL; BE(vivo) 2.7 mmol/L (-2 to +3); HCO3 25.4 mmol/L (22.0-26.0); LACTATE 1.97 mmol/L (0.5-2.0); O2(CT) 15.8 mL/dL (15.0-23.0); O2Hb 89.1 % (92.0-98.0); PCO2 32.9 mmHg (35.0-45.0); STICK SITE R.RADIAL; pH 7.505 (7.360-7.450); sO2 91.5 % (92.0-98.0); tCO2 26.4 mmol/L (24.0-30.0)
[2017-01-16 14:12] LABS: HEMATOCRIT 36.5 % (42.0-52.0); HEMOGLOBIN 12.5 gm/dL (14.0-18.0); MCH 31.6 pg (26.0-34.0); MCHC 34.3 g/dL (28.0-37.0); MCV 92.1 fL (80.0-100.0); PLATELET COUNT 552 thou/uL (150-400); RBC 3.97 mil/uL (4.50-6.00); RDW 12.7 % (10.5-14.5); WBC 23.5 thou/uL (4.0-11.0)
[2017-01-16 14:14] LABS: MANUAL DIFF YES
[2017-01-16 14:23] LABS: CALCIUM 8.1 mg/dL (8.5-10.1); POTASSIUM 3.1 mmol/L (3.5-5.1)
[2017-01-16 14:28] LABS: TOTAL BILIRUBIN 0.9 mg/dL (<0.1-1.0); TOTAL PROTEIN 6.8 g/dL (6.4-8.2)
[2017-01-16 14:29] LABS: APTT 41.8 Seconds (24.5-32.8); INR 1.4; PROTIME 14.3 Seconds (9.3-11.4)
[2017-01-16 14:34] LABS: FIBRINOGEN 661.4 mg/dL (210-360)
[2017-01-16 14:36] LABS: ABSOLUTE NEUTROPHILS 20.7 thou/uL (1.4-8.2); METAMYELOCYTES 1 %; TOTAL CELL COUNT 100
[2017-01-16 16:14] LABS: URINE BILIRUBIN NEGATIVE (Negative); URINE BLOOD 1+ (Negative); URINE COLOR YELLOW; URINE GLUCOSE-RANDOM* NEGATIVE (Negative); URINE KETONES NEGATIVE (Negative); URINE NITRITE NEGATIVE (Negative); URINE PROTEIN (DIPSTICK) NEGATIVE (Negative); URINE UROBILINOGEN 0.2 E.U./dl (0.2-1.0)
[2017-01-16 16:20] LABS: BACTERIA None Seen /HPF (None Seen); CASTS None Seen /LPF (None Seen); CRYSTALS None Seen /LPF (None Seen); SQUAMOUS None Seen /LPF (0-3); URINE RBC 0-2 Rare /HPF (0-2); URINE WBC None Seen /HPF (0-5)
[2017-01-16 16:33] LABS: ABG SAMPLE TYPE VENOUS; BE(vivo) 2.1 mmol/L (-2 to +3); HCO3 25.2 mmol/L (22.0-26.0); LACTATE 1.67 mmol/L (0.5-2.0); O2(CT) 10.5 mL/dL (15.0-23.0); O2Hb VENOUS 61.1 (65.0-85.0); PCO2 VENOUS 34.5 mmHg (41.0-51.0); PO2 VENOUS 31.4 mmHg (35.0-45.0); Pressure Support 6 cm H20; STICK SITE LINE; sO2 VENOUS 65.7 % (65.0-85.0); tCO2 26.3 mmol/L (24.0-30.0)
[2017-01-16 17:44] LABS: ABG SAMPLE TYPE VENOUS; BE(vivo) 4.3 mmol/L (-2 to +3); HCO3 27.3 mmol/L (22.0-26.0); LACTATE 1.65 mmol/L (0.5-2.0); O2(CT) 10.7 mL/dL (15.0-23.0); O2Hb VENOUS 60.9 (65.0-85.0); PCO2 VENOUS 35.1 mmHg (41.0-51.0); PO2 VENOUS 29.9 mmHg (35.0-45.0); STICK SITE LINE; sO2 VENOUS 63.9 % (65.0-85.0); tCO2 28.3 mmol/L (24.0-30.0)
[2017-01-16 17:45] LABS: Pressure Support 6 cm H20
[2017-01-16 18:55] LABS: ABG SAMPLE TYPE VENOUS; BE(vivo) 0.2 mmol/L (-2 to +3); HCO3 23.9 mmol/L (22.0-26.0); LACTATE 1.52 mmol/L (0.5-2.0); O2(CT) 11.5 mL/dL (15.0-23.0); O2Hb VENOUS 68.5 (65.0-85.0); PCO2 VENOUS 35.5 mmHg (41.0-51.0); PO2 VENOUS 36.3 mmHg (35.0-45.0); STICK SITE LINE; sO2 VENOUS 72.4 % (65.0-85.0)
[2017-01-16 18:56] LABS: Pressure Support 6 cm H20
[2017-01-16 19:02] LABS: CALCIUM 7.5 mg/dL (8.5-10.1); CREATININE 0.9 mg/dL (0.7-1.3); POTASSIUM 3.1 mmol/L (3.5-5.1)
[2017-01-16 19:50] LABS: ABG SAMPLE TYPE VENOUS; BE(vivo) 3.1 mmol/L (-2 to +3); HCO3 26.6 mmol/L (22.0-26.0); LACTATE 1.72 mmol/L (0.5-2.0); O2(CT) 10.2 mL/dL (15.0-23.0); O2Hb VENOUS 59.8 (65.0-85.0); PCO2 VENOUS 36.8 mmHg (41.0-51.0); Pressure Support 6 cm H20; STICK SITE LINE; sO2 VENOUS 62.2 % (65.0-85.0); tCO2 27.7 mmol/L (24.0-30.0)
[2017-01-16 20:49] LABS: ABG SAMPLE TYPE VENOUS; BE(vivo) 3.9 mmol/L (-2 to +3); O2(CT) 10.6 mL/dL (15.0-23.0); PCO2 VENOUS 35.2 mmHg (41.0-51.0); PO2 VENOUS 31.8 mmHg (35.0-45.0); Pressure Support 6 cm H20; STICK SITE LINE; sO2 VENOUS 67.5 % (65.0-85.0)
[2017-01-16 21:43] LABS: ABG SAMPLE TYPE VENOUS; BE(vivo) 5.2 mmol/L (-2 to +3); HCO3 28.3 mmol/L (22.0-26.0); LACTATE 1.54 mmol/L (0.5-2.0); O2(CT) 10.8 mL/dL (15.0-23.0); O2Hb VENOUS 63.8 (65.0-85.0); PO2 VENOUS 31.5 mmHg (35.0-45.0); Pressure Support 6 cm H20; STICK SITE LINE; sO2 VENOUS 67.4 % (65.0-85.0); tCO2 29.4 mmol/L (24.0-30.0)
[2017-01-16 22:17] LABS: CALCIUM 7.5 mg/dL (8.5-10.1); CREATININE 0.9 mg/dL (0.7-1.3); POTASSIUM 3.6 mmol/L (3.5-5.1)
[2017-01-17] VITALS (24 sets, daily range): BP systolic 62–139; BP diastolic 46–105
[2017-01-17 01:00] LABS: MAGNESIUM 1.5 mg/dL (1.8-2.4); POTASSIUM 3.6 mmol/L (3.5-5.1)
[2017-01-17 03:40] LABS: HEMATOCRIT 32.3 % (42.0-52.0); HEMOGLOBIN 11.3 gm/dL (14.0-18.0); MCH 32.1 pg (26.0-34.0); MCHC 34.8 g/dL (28.0-37.0); MCV 92.2 fL (80.0-100.0); PLATELET COUNT 512 thou/uL (150-400); RBC 3.51 mil/uL (4.50-6.00); RDW 12.8 % (10.5-14.5); WBC 25.3 thou/uL (4.0-11.0)
[2017-01-17 03:51] LABS: MANUAL DIFF YES
[2017-01-17 03:56] LABS: CALCIUM 8.1 mg/dL (8.5-10.1); CREATININE 0.9 mg/dL (0.7-1.3); POTASSIUM 3.6 mmol/L (3.5-5.1)
[2017-01-17 04:32] LABS: ABSOLUTE NEUTROPHILS 21.5 thou/uL (1.4-8.2); METAMYELOCYTES 4 %; MYELOCYTES 3 %; TOTAL CELL COUNT 100
[2017-01-17 12:52] LABS: CALCIUM 6.6 mg/dL (8.5-10.1); CREATININE 0.8 mg/dL (0.7-1.3)
[2017-01-18] VITALS (21 sets, daily range): BP systolic 100–148; BP diastolic 46–111
[2017-01-18 04:29] LABS: HEMATOCRIT 31.7 % (42.0-52.0); HEMOGLOBIN 10.8 gm/dL (14.0-18.0); MCH 31.8 pg (26.0-34.0); MCHC 34.2 g/dL (28.0-37.0); PLATELET COUNT 535 thou/uL (150-400); RBC 3.41 mil/uL (4.50-6.00); RDW 12.9 % (10.5-14.5); WBC 29.4 thou/uL (4.0-11.0)
[2017-01-18 04:32] LABS: MANUAL DIFF YES
[2017-01-18 04:34] LABS: CALCIUM 8.1 mg/dL (8.5-10.1); CREATININE 0.9 mg/dL (0.7-1.3); POTASSIUM 3.8 mmol/L (3.5-5.1)
[2017-01-18 08:25] LABS: ABSOLUTE NEUTROPHILS 24.4 thou/uL (1.4-8.2); METAMYELOCYTES 1 %; MYELOCYTES 6 %; TOTAL CELL COUNT 100
[2017-01-18 08:26] LABS: ANISOCYTOSIS SLIGHT
[2017-01-19] VITALS (36 sets, daily range): BP systolic 79–169; BP diastolic 44–141
[2017-01-19 04:40] LABS: HEMATOCRIT 31.8 % (42.0-52.0); HEMOGLOBIN 10.8 gm/dL (14.0-18.0); MCH 31.2 pg (26.0-34.0); MCHC 33.9 g/dL (28.0-37.0); PLATELET COUNT 536 thou/uL (150-400); RBC 3.46 mil/uL (4.50-6.00); RDW 13.2 % (10.5-14.5); WBC 33.2 thou/uL (4.0-11.0)
[2017-01-19 04:43] LABS: MANUAL DIFF YES
[2017-01-19 04:52] LABS: CALCIUM 7.9 mg/dL (8.5-10.1); CREATININE 0.9 mg/dL (0.7-1.3); POTASSIUM 3.7 mmol/L (3.5-5.1)
[2017-01-19 08:13] LABS: ABSOLUTE NEUTROPHILS 29.9 thou/uL (1.4-8.2); METAMYELOCYTES 2 %; MYELOCYTES 2 %; TOTAL CELL COUNT 100
[2017-01-19 08:14] LABS: ANISOCYTOSIS SLIGHT
[2017-01-19 11:52] LABS: ABG SAMPLE TYPE ARTERIAL; BE(vivo) 7.5 mmol/L (-2 to +3); HCO3 30.1 mmol/L (22.0-26.0); LACTATE 2.05 mmol/L (0.5-2.0); O2(CT) 16.3 mL/dL (15.0-23.0); O2Hb 93.2 % (92.0-98.0); PCO2 35.2 mmHg (35.0-45.0); PO2 63.4 mmHg (80.0-100.0); sO2 94.7 % (92.0-98.0); tCO2 31.2 mmol/L (24.0-30.0)
[2017-01-19 11:53] LABS: Pressure Support 10 cm H20; STICK SITE L.RADIAL
[2017-01-19 16:42] LABS: ABG SAMPLE TYPE ARTERIAL; BE(vivo) 5.4 mmol/L (-2 to +3); HCO3 30.2 mmol/L (22.0-26.0); LACTATE 1.75 mmol/L (0.5-2.0); O2(CT) 13.7 mL/dL (15.0-23.0); O2Hb 88.6 % (92.0-98.0); PCO2 44.9 mmHg (35.0-45.0); pH 7.445 (7.360-7.450); sO2 90.6 % (92.0-98.0); tCO2 31.5 mmol/L (24.0-30.0)
[2017-01-19 16:43] LABS: STICK SITE L.BRACHIAL
[2017-01-19 16:44] LABS: TIDAL VOLUME 500 ml
[2017-01-19 16:46] LABS: HEMATOCRIT 23.3 % (42.0-52.0); MCH 31.8 pg (26.0-34.0); MCHC 33.8 g/dL (28.0-37.0); RBC 2.48 mil/uL (4.50-6.00); RDW 12.9 % (10.5-14.5); WBC 31.3 thou/uL (4.0-11.0)
[2017-01-19 16:47] LABS: HEMOGLOBIN 7.9 gm/dL (14.0-18.0)
[2017-01-19 16:55] LABS: CALCIUM 6.6 mg/dL (8.5-10.1); CREATININE 0.9 mg/dL (0.7-1.3); POTASSIUM 3.4 mmol/L (3.5-5.1)
[2017-01-20] VITALS (127 sets, daily range): BP systolic 68–131; BP diastolic 46–88
[2017-01-20 06:06] LABS: HEMATOCRIT 32.2 % (42.0-52.0); MCH 31.2 pg (26.0-34.0); MCHC 33.1 g/dL (28.0-37.0); MCV 94.2 fL (80.0-100.0); PLATELET COUNT 332 thou/uL (150-400); RBC 3.41 mil/uL (4.50-6.00); RDW 13.1 % (10.5-14.5)
[2017-01-20 06:10] LABS: CALCIUM 8.1 mg/dL (8.5-10.1); CREATININE 1.1 mg/dL (0.7-1.3); POTASSIUM 4.3 mmol/L (3.5-5.1)
[2017-01-20 06:30] LABS: HEMOGLOBIN 10.7 gm/dL (14.0-18.0); MANUAL DIFF YES
[2017-01-20 06:31] LABS: WBC 47.8 thou/uL (4.0-11.0)
[2017-01-20 08:54] LABS: ABSOLUTE NEUTROPHILS 40.6 thou/uL (1.4-8.2); METAMYELOCYTES 2 %; MYELOCYTES 5 %; TOTAL CELL COUNT 100
[2017-01-20 08:55] LABS: ANISOCYTOSIS SLIGHT; POLYCHROMASIA OCCASIONAL
[2017-01-20 21:02] LABS: ABG SAMPLE TYPE ARTERIAL; BE(vivo) 1.5 mmol/L (-2 to +3); HCO3 28.7 mmol/L (22.0-26.0); LACTATE 1.47 mmol/L (0.5-2.0); O2(CT) 15.4 mL/dL (15.0-23.0); O2Hb 94.9 % (92.0-98.0); PCO2 57.9 mmHg (35.0-45.0); sO2 95.6 % (92.0-98.0); tCO2 30.5 mmol/L (24.0-30.0)
[2017-01-20 21:48] LABS: STICK SITE R.RADIAL; pH 7.313 (7.360-7.450)
[2017-01-20 21:49] LABS: TIDAL VOLUME 500 ml
[2017-01-21] VITALS (52 sets, daily range): BP systolic 79–140; BP diastolic 53–85
[2017-01-21 05:19] LABS: HEMATOCRIT 30.9 % (42.0-52.0); HEMOGLOBIN 10.1 gm/dL (14.0-18.0); MCH 31.2 pg (26.0-34.0); MCHC 32.8 g/dL (28.0-37.0); MCV 95.2 fL (80.0-100.0); PLATELET COUNT 269 thou/uL (150-400); RBC 3.25 mil/uL (4.50-6.00); RDW 13.4 % (10.5-14.5)
[2017-01-21 05:29] LABS: ALBUMIN 1.3 g/dL (3.4-5.0); CALCIUM 7.8 mg/dL (8.5-10.1); CREATININE 1.1 mg/dL (0.7-1.3); MAGNESIUM 2.3 mg/dL (1.8-2.4); POTASSIUM 4.5 mmol/L (3.5-5.1); TOTAL BILIRUBIN 0.3 mg/dL (<0.1-1.0); TOTAL PROTEIN 5.7 g/dL (6.4-8.2)
[2017-01-21 05:46] LABS: MANUAL DIFF YES
[2017-01-21 07:51] LABS: ABSOLUTE NEUTROPHILS 34.6 thou/uL (1.4-8.2); ATYPICAL LYMPHS 1 %; METAMYELOCYTES 2 %; TOTAL CELL COUNT 100
[2017-01-21 07:52] LABS: ANISOCYTOSIS SLIGHT
[2017-01-22] VITALS (78 sets, daily range): BP systolic 102–156; BP diastolic 66–93
[2017-01-22 06:19] LABS: HEMATOCRIT 31.2 % (42.0-52.0); HEMOGLOBIN 10.4 gm/dL (14.0-18.0); MCH 31.3 pg (26.0-34.0); MCHC 33.3 g/dL (28.0-37.0); MCV 93.9 fL (80.0-100.0); PLATELET COUNT 315 thou/uL (150-400); RBC 3.32 mil/uL (4.50-6.00); RDW 13.5 % (10.5-14.5); WBC 37.9 thou/uL (4.0-11.0)
[2017-01-22 06:20] LABS: MANUAL DIFF YES
[2017-01-22 06:28] LABS: CALCIUM 8.1 mg/dL (8.5-10.1); CREATININE 1.3 mg/dL (0.7-1.3)
[2017-01-22 07:24] LABS: ABSOLUTE NEUTROPHILS 34.5 thou/uL (1.4-8.2); METAMYELOCYTES 1 %; MYELOCYTES 1 %; TOTAL CELL COUNT 100
[2017-01-22 07:25] LABS: ANISOCYTOSIS SLIGHT
[2017-01-23] VITALS (43 sets, daily range): BP systolic 78–136; BP diastolic 56–82
[2017-01-23 05:12] LABS: HEMATOCRIT 30.2 % (42.0-52.0); HEMOGLOBIN 10.1 gm/dL (14.0-18.0); MCH 31.2 pg (26.0-34.0); MCHC 33.3 g/dL (28.0-37.0); MCV 93.7 fL (80.0-100.0); PLATELET COUNT 316 thou/uL (150-400); RBC 3.22 mil/uL (4.50-6.00); RDW 13.4 % (10.5-14.5)
[2017-01-23 05:19] LABS: MANUAL DIFF YES
[2017-01-23 05:26] LABS: CALCIUM 8.9 mg/dL (8.5-10.1); CREATININE 1.4 mg/dL (0.7-1.3)
[2017-01-23 06:25] LABS: ABSOLUTE NEUTROPHILS 28.1 thou/uL (1.4-8.2); METAMYELOCYTES 1 %; TOTAL CELL COUNT 100
[2017-01-23 09:36] LABS: ABG SAMPLE TYPE ARTERIAL; BE(vivo) 0.5 mmol/L (-2 to +3); HCO3 26.5 mmol/L (22.0-26.0); LACTATE 1.39 mmol/L (0.5-2.0); O2Hb 91.7 % (92.0-98.0); PCO2 48.3 mmHg (35.0-45.0); PO2 68.8 mmHg (80.0-100.0); pH 7.357 (7.360-7.450); sO2 92.9 % (92.0-98.0)
[2017-01-23 09:37] LABS: STICK SITE R.RADIAL
[2017-01-23 09:38] LABS: ABG COMMENT ASSIST CONTROL MODE; TIDAL VOLUME 500 ml
[2017-01-24] VITALS (30 sets, daily range): BP systolic 84–142; BP diastolic 50–93
[2017-01-24 04:11] LABS: HEMATOCRIT 28.9 % (42.0-52.0); HEMOGLOBIN 9.7 gm/dL (14.0-18.0); MCH 31.4 pg (26.0-34.0); MCHC 33.5 g/dL (28.0-37.0); MCV 93.8 fL (80.0-100.0); PLATELET COUNT 305 thou/uL (150-400); RBC 3.08 mil/uL (4.50-6.00); RDW 13.7 % (10.5-14.5); WBC 26.2 thou/uL (4.0-11.0)
[2017-01-24 04:16] LABS: MANUAL DIFF YES
[2017-01-24 04:23] LABS: ALBUMIN 1.2 g/dL (3.4-5.0); CALCIUM 8.6 mg/dL (8.5-10.1); CREATININE 1.6 mg/dL (0.7-1.3); POTASSIUM 5.5 mmol/L (3.5-5.1); TOTAL BILIRUBIN 0.3 mg/dL (<0.1-1.0); TOTAL PROTEIN 5.6 g/dL (6.4-8.2)
[2017-01-24 04:38] LABS: ABSOLUTE NEUTROPHILS 23.6 thou/uL (1.4-8.2); METAMYELOCYTES 1 %; TOTAL CELL COUNT 100
[2017-01-24 11:45] LABS: ABG SAMPLE TYPE ARTERIAL; BE(vivo) 0.6 mmol/L (-2 to +3); HCO3 26.8 mmol/L (22.0-26.0); LACTATE 1.73 mmol/L (0.5-2.0); O2(CT) 13.9 mL/dL (15.0-23.0); O2Hb 93.8 % (92.0-98.0); PCO2 50.3 mmHg (35.0-45.0); PO2 80.9 mmHg (80.0-100.0); pH 7.344 (7.360-7.450); sO2 95.2 % (92.0-98.0); tCO2 28.3 mmol/L (24.0-30.0)
[2017-01-24 11:46] LABS: STICK SITE L.RADIAL; TIDAL VOLUME 500 ml
[2017-01-25] VITALS (27 sets, daily range): BP systolic 81–162; BP diastolic 50–121
[2017-01-25 04:15] LABS: HEMATOCRIT 27.6 % (42.0-52.0); HEMOGLOBIN 9.3 gm/dL (14.0-18.0); MCH 31.2 pg (26.0-34.0); MCHC 33.7 g/dL (28.0-37.0); MCV 92.6 fL (80.0-100.0); PLATELET COUNT 311 thou/uL (150-400); RBC 2.98 mil/uL (4.50-6.00); RDW 13.8 % (10.5-14.5); WBC 23.2 thou/uL (4.0-11.0)
[2017-01-25 04:17] LABS: CALCIUM 8.5 mg/dL (8.5-10.1); CREATININE 1.8 mg/dL (0.7-1.3); MANUAL DIFF YES
[2017-01-25 04:18] LABS: POTASSIUM 6.1 mmol/L (3.5-5.1)
[2017-01-25 04:58] LABS: ABG SAMPLE TYPE ARTERIAL; BE(vivo) 0.8 mmol/L (-2 to +3); HCO3 26.9 mmol/L (22.0-26.0); LACTATE 1.51 mmol/L (0.5-2.0); O2(CT) 13.1 mL/dL (15.0-23.0); O2Hb 94.8 % (92.0-98.0); PCO2 50.5 mmHg (35.0-45.0); PO2 86.2 mmHg (80.0-100.0); pH 7.345 (7.360-7.450); sO2 95.9 % (92.0-98.0); tCO2 28.5 mmol/L (24.0-30.0)
[2017-01-25 04:59] LABS: STICK SITE R.RADIAL; TIDAL VOLUME 500 ml
[2017-01-25 08:20] LABS: ANISOCYTOSIS SLIGHT; METAMYELOCYTES 5 %; TOTAL CELL COUNT 100
[2017-01-25 08:21] LABS: ABSOLUTE NEUTROPHILS 18.1 thou/uL (1.4-8.2)
[2017-01-25 14:22] LABS: ABG SAMPLE TYPE ARTERIAL; BE(vivo) 0.1 mmol/L (-2 to +3); LACTATE 1.87 mmol/L (0.5-2.0); O2(CT) 13.1 mL/dL (15.0-23.0); O2Hb 93.4 % (92.0-98.0); PCO2 48.1 mmHg (35.0-45.0); PO2 74.9 mmHg (80.0-100.0); STICK SITE L.RADIAL; TIDAL VOLUME 500 ml; pH 7.351 (7.360-7.450); sO2 94.3 % (92.0-98.0); tCO2 27.5 mmol/L (24.0-30.0)
[2017-01-26] VITALS (26 sets, daily range): BP systolic 62–127; BP diastolic 12–67
[2017-01-26 02:51] LABS: HEMATOCRIT 25.8 % (42.0-52.0); HEMOGLOBIN 8.5 gm/dL (14.0-18.0); MCV 93.9 fL (80.0-100.0); PLATELET COUNT 276 thou/uL (150-400); RBC 2.75 mil/uL (4.50-6.00); RDW 13.7 % (10.5-14.5); WBC 20.9 thou/uL (4.0-11.0)
[2017-01-26 03:00] LABS: CALCIUM 7.2 mg/dL (8.5-10.1); MAGNESIUM 2.5 mg/dL (1.8-2.4); PHOSPHORUS 6.4 mg/dL (2.5-4.9); POTASSIUM 4.8 mmol/L (3.5-5.1); TOTAL BILIRUBIN 0.2 mg/dL (<0.1-1.0)
[2017-01-26 03:04] LABS: MANUAL DIFF YES
[2017-01-26 03:33] LABS: METAMYELOCYTES 1 %; TOTAL CELL COUNT 100
[2017-01-26 05:07] LABS: ABG SAMPLE TYPE ARTERIAL; BE(vivo) -1.1 mmol/L (-2 to +3); HCO3 25.6 mmol/L (22.0-26.0); LACTATE 1.47 mmol/L (0.5-2.0); O2Hb 94.4 % (92.0-98.0); PCO2 52.9 mmHg (35.0-45.0); PO2 84.3 mmHg (80.0-100.0); STICK SITE R.RADIAL; pH 7.303 (7.360-7.450); sO2 95.2 % (92.0-98.0); tCO2 27.2 mmol/L (24.0-30.0)
[2017-01-26 05:08] LABS: TIDAL VOLUME 500 ml
[2017-01-26 14:55] LABS: HEMATOCRIT 27.3 % (42.0-52.0); HEMOGLOBIN 9.2 gm/dL (14.0-18.0)
[2017-01-27] VITALS (55 sets, daily range): BP systolic 81–157; BP diastolic 48–87
[2017-01-27 02:26] LABS: HEMATOCRIT 25.9 % (42.0-52.0); HEMOGLOBIN 8.7 gm/dL (14.0-18.0); MCH 31.5 pg (26.0-34.0); MCHC 33.7 g/dL (28.0-37.0); MCV 93.6 fL (80.0-100.0); PLATELET COUNT 303 thou/uL (150-400); RBC 2.77 mil/uL (4.50-6.00); WBC 16.7 thou/uL (4.0-11.0)
[2017-01-27 02:48] LABS: MANUAL DIFF YES
[2017-01-27 02:50] LABS: ALBUMIN 1.2 g/dL (3.4-5.0); CALCIUM 7.8 mg/dL (8.5-10.1); CREATININE 2.5 mg/dL (0.7-1.3); DIRECT BILIRUBIN 0.1 mg/dL (<0.1-0.3); PHOSPHORUS 7.8 mg/dL (2.5-4.9); TOTAL BILIRUBIN 0.2 mg/dL (<0.1-1.0); TOTAL PROTEIN 5.5 g/dL (6.4-8.2)
[2017-01-27 03:13] LABS: POTASSIUM 5.9 mmol/L (3.5-5.1)
[2017-01-27 04:38] LABS: ABG SAMPLE TYPE ARTERIAL; BE(vivo) -4.3 mmol/L (-2 to +3); HCO3 22.5 mmol/L (22.0-26.0); LACTATE 1.27 mmol/L (0.5-2.0); O2(CT) 14.8 mL/dL (15.0-23.0); PCO2 48.5 mmHg (35.0-45.0); PO2 81.8 mmHg (80.0-100.0); sO2 94.7 % (92.0-98.0)
[2017-01-27 04:40] LABS: ABSOLUTE NEUTROPHILS 16.2 thou/uL (1.4-8.2); METAMYELOCYTES 2 %; TOTAL CELL COUNT 100
[2017-01-27 04:40] LABS: STICK SITE L.RADIAL
[2017-01-27 04:41] LABS: pH 7.284 (7.360-7.450)
[2017-01-27 04:42] LABS: TIDAL VOLUME 500 ml
[2017-01-27 10:22] LABS: URINE BILIRUBIN NEGATIVE (Negative); URINE BLOOD 1+ (Negative); URINE COLOR YELLOW; URINE GLUCOSE-RANDOM* NEGATIVE (Negative); URINE KETONES NEGATIVE (Negative); URINE NITRITE NEGATIVE (Negative); URINE PROTEIN (DIPSTICK) NEGATIVE (Negative); URINE UROBILINOGEN 0.2 E.U./dl (0.2-1.0)
[2017-01-27 10:37] LABS: HYALINE CASTS 0-3 Few /LPF (None Seen); SQUAMOUS 0-3 Few /LPF (0-3)
[2017-01-27 10:38] LABS: AMORPHOUS URATES Few /LPF (None Seen); BACTERIA 1-9 Few /HPF (None Seen); URINE RBC 0-2 Rare /HPF (0-2); URINE WBC 0-5 Rare /HPF (0-5)
[2017-01-27 13:29] LABS: HEMATOCRIT 26.4 % (42.0-52.0); HEMOGLOBIN 8.8 gm/dL (14.0-18.0)
[2017-01-27 14:48] LABS: HEMATOCRIT 30.3 % (42.0-52.0); HEMOGLOBIN 10.2 gm/dL (14.0-18.0); MCH 30.9 pg (26.0-34.0); MCHC 33.5 g/dL (28.0-37.0); MCV 92.1 fL (80.0-100.0); RBC 3.29 mil/uL (4.50-6.00); RDW 13.5 % (10.5-14.5); WBC 19.9 thou/uL (4.0-11.0)
[2017-01-28] VITALS (103 sets, daily range): BP systolic 64–129; BP diastolic 43–75
[2017-01-28 05:45] LABS: HEMOGLOBIN 9.3 gm/dL (14.0-18.0); MCH 31.9 pg (26.0-34.0); MCHC 34.6 g/dL (28.0-37.0); MCV 92.2 fL (80.0-100.0); RBC 2.93 mil/uL (4.50-6.00); RDW 13.6 % (10.5-14.5); WBC 21.7 thou/uL (4.0-11.0)
[2017-01-28 06:04] LABS: ALBUMIN 1.4 g/dL (3.4-5.0); CALCIUM 7.8 mg/dL (8.5-10.1); CREATININE 1.6 mg/dL (0.7-1.3); MAGNESIUM 2.5 mg/dL (1.8-2.4); PHOSPHORUS 5.8 mg/dL (2.5-4.9); POTASSIUM 4.7 mmol/L (3.5-5.1)
[2017-01-29] VITALS (47 sets, daily range): BP systolic 91–142; BP diastolic 48–95
[2017-01-29 05:35] LABS: HEMATOCRIT 28.1 % (42.0-52.0); HEMOGLOBIN 9.4 gm/dL (14.0-18.0); MCH 30.9 pg (26.0-34.0); MCHC 33.4 g/dL (28.0-37.0); MCV 92.5 fL (80.0-100.0); RBC 3.04 mil/uL (4.50-6.00); RDW 13.6 % (10.5-14.5); WBC 19.1 thou/uL (4.0-11.0)
[2017-01-29 05:59] LABS: ALBUMIN 1.5 g/dL (3.4-5.0); CALCIUM 7.8 mg/dL (8.5-10.1); CREATININE 1.5 mg/dL (0.7-1.3); PHOSPHORUS 5.5 mg/dL (2.5-4.9); POTASSIUM 4.5 mmol/L (3.5-5.1)
[2017-01-29 13:41] LABS: ABG SAMPLE TYPE ARTERIAL; HCO3 29.7 mmol/L (22.0-26.0); LACTATE 1.92 mmol/L (0.5-2.0); O2(CT) 13.8 mL/dL (15.0-23.0); O2Hb 95.2 % (92.0-98.0); PCO2 44.6 mmHg (35.0-45.0); PO2 87.1 mmHg (80.0-100.0); pH 7.442 (7.360-7.450); sO2 96.9 % (92.0-98.0); tCO2 31.1 mmol/L (24.0-30.0)
[2017-01-29 13:43] LABS: STICK SITE L.RADIAL; TIDAL VOLUME 500 ml
[2017-01-30] VITALS (36 sets, daily range): BP systolic 84–156; BP diastolic 49–83
[2017-01-30 04:54] LABS: HEMATOCRIT 25.6 % (42.0-52.0); HEMOGLOBIN 8.6 gm/dL (14.0-18.0); MCH 31.4 pg (26.0-34.0); MCHC 33.7 g/dL (28.0-37.0); RBC 2.76 mil/uL (4.50-6.00); RDW 13.4 % (10.5-14.5); WBC 18.6 thou/uL (4.0-11.0)
[2017-01-30 05:11] LABS: ALBUMIN 1.4 g/dL (3.4-5.0); CALCIUM 7.7 mg/dL (8.5-10.1); CREATININE 1.6 mg/dL (0.7-1.3); POTASSIUM 4.2 mmol/L (3.5-5.1)
[2017-01-31] VITALS (26 sets, daily range): BP systolic 83–128; BP diastolic 57–95
[2017-01-31 04:38] LABS: ABG SAMPLE TYPE ARTERIAL; BE(vivo) 6.5 mmol/L (-2 to +3); HCO3 32.2 mmol/L (22.0-26.0); LACTATE 1.83 mmol/L (0.5-2.0); O2(CT) 15.3 mL/dL (15.0-23.0); O2Hb 94.8 % (92.0-98.0); PCO2 51.2 mmHg (35.0-45.0); PO2 85.2 mmHg (80.0-100.0); pH 7.416 (7.360-7.450); sO2 96.4 % (92.0-98.0); tCO2 33.7 mmol/L (24.0-30.0)
[2017-01-31 04:39] LABS: STICK SITE L.RADIAL; TIDAL VOLUME 500 ml
[2017-01-31 04:55] LABS: HEMATOCRIT 28.7 % (42.0-52.0); HEMOGLOBIN 9.5 gm/dL (14.0-18.0); MCHC 33.1 g/dL (28.0-37.0); MCV 93.8 fL (80.0-100.0); RBC 3.06 mil/uL (4.50-6.00); RDW 13.7 % (10.5-14.5)
[2017-01-31 05:14] LABS: ALBUMIN 1.6 g/dL (3.4-5.0); CALCIUM 7.8 mg/dL (8.5-10.1); CREATININE 1.6 mg/dL (0.7-1.3); POTASSIUM 4.2 mmol/L (3.5-5.1)
[2017-02-01] VITALS (46 sets, daily range): BP systolic 72–116; BP diastolic 37–73
[2017-02-01 05:53] LABS: HEMATOCRIT 27.9 % (42.0-52.0); HEMOGLOBIN 9.3 gm/dL (14.0-18.0); MCH 31.1 pg (26.0-34.0); MCHC 33.3 g/dL (28.0-37.0); MCV 93.2 fL (80.0-100.0); RBC 2.99 mil/uL (4.50-6.00); RDW 13.8 % (10.5-14.5)
[2017-02-01 06:06] LABS: ALBUMIN 1.5 g/dL (3.4-5.0); CALCIUM 7.5 mg/dL (8.5-10.1); CREATININE 1.7 mg/dL (0.7-1.3); PHOSPHORUS 4.6 mg/dL (2.5-4.9); TOTAL BILIRUBIN 0.3 mg/dL (<0.1-1.0)
[2017-02-02] VITALS (15 sets, daily range): BP systolic 35–78; BP diastolic 16–50
== END 2017-02-02 02:34 | DRG 870 ==
LOC: ER 16:05 → EROBS 17:32 → ICU 17:32 → 4W 17:32 → ICU 01-16 13:26
PROVIDERS: Emergency Medicine; Family Medicine; Hospitalist; Internal Medicine; Internal Medicine Endocrinology, Diabetes & Metabolism; Internal Medicine Nephrology; Internal Medicine Pulmonary Disease; Nurse Practitioner; Specialist
PROC: 02HV33Z Insertion of Infusion Device into Superior Vena Cava, Percutaneous Approach (ICD-10-PCS; 2017-01-16)
PROC: B548ZZA Ultrasonography of Superior Vena Cava, Guidance (ICD-10-PCS; 2017-01-16)
PROC: B5181ZA Fluoroscopy of Superior Vena Cava using Low Osmolar Contrast, Guidance (ICD-10-PCS; 2017-01-16)
PROC: 0BH17EZ Insertion of Endotracheal Airway into Trachea, Via Natural or Artificial Opening (ICD-10-PCS; 2017-01-19)
PROC: 5A1955Z Respiratory Ventilation, Greater than 96 Consecutive Hours (ICD-10-PCS; principal; 2017-01-21)
PROC: 0BJ08ZZ Inspection of Tracheobronchial Tree, Via Natural or Artificial Opening Endoscopic (ICD-10-PCS; 2017-01-21)
PROC: 0DJ08ZZ Inspection of Upper Intestinal Tract, Via Natural or Artificial Opening Endoscopic (ICD-10-PCS; 2017-01-27)
DX: A41.9 Sepsis, unspecified organism (principal); J96.01 Acute respiratory failure with hypoxia; J18.9 Pneumonia, unspecified organism; I50.33 Acute on chronic diastolic (congestive) heart failure; G93.40 Encephalopathy, unspecified; I63.9 Cerebral infarction, unspecified; E43 Unspecified severe protein-calorie malnutrition; I13.0 Hypertensive heart and chronic kidney disease with heart failure and stage 1 through stage 4 chronic kidney disease, or unspecified chronic kidney disease; N17.9 Acute kidney failure, unspecified; K92.2 Gastrointestinal hemorrhage, unspecified; E87.1 Hypo-osmolality and hyponatremia; E87.0 Hyperosmolality and hypernatremia; N18.9 Chronic kidney disease, unspecified; R65.20 Severe sepsis without septic shock; E78.5 Hyperlipidemia, unspecified; I48.91 Unspecified atrial fibrillation; I35.0 Nonrheumatic aortic (valve) stenosis; I27.2 Other secondary pulmonary hypertension; E87.5 Hyperkalemia; D64.9 Anemia, unspecified; Z68.28 Body mass index [BMI] 28.0-28.9, adult; E88.09 Other disorders of plasma-protein metabolism, not elsewhere classified; K21.9 Gastro-esophageal reflux disease without esophagitis; I34.0 Nonrheumatic mitral (valve) insufficiency; G89.29 Other chronic pain; M54.9 Dorsalgia, unspecified; R41.0 Disorientation, unspecified; Z79.82 Long term (current) use of aspirin; Z79.899 Other long term (current) drug therapy; Z88.6 Allergy status to analgesic agent; Z88.0 Allergy status to penicillin; Z66 Do not resuscitate; Z51.5 Encounter for palliative care
CPT/HCPCS: 10045; 10078; 27000; 32100; 62110